=== PATIENT | female | born 1995 | race American Indian/Alaskan Native ===

== ENCOUNTER 2021-09-23 20:41 | Emergency (ER) | payer OTHER ==
[2021-09-23 21:03] VITALS: BP 132/89
[2021-09-23] MEDS ORDERED: traMADol 50 MG TAB PO ONE (23:32)
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
== END 2021-09-24 00:52 | disposition home or self-care (01) ==
LOC: ED 20:41
DX: S00.83XA Contusion of other part of head, initial encounter (principal); V89.2XXA Person injured in unspecified motor-vehicle accident, traffic, initial encounter; W22.19XA Striking against or struck by other automobile airbag, initial encounter; Y93.89 Activity, other specified; Y92.89 Other specified places as the place of occurrence of the external cause; Y99.8 Other external cause status
CPT/HCPCS: 70100; 99283